=== PATIENT | female | born 1990 | race Two or more races ===

== ENCOUNTER 2017-09-18 17:00 | Inpatient (IN) | payer SELFPAY ==
[2017-09-18] MEDS ORDERED: Butorphanol 1 MG/ML SDV IVPUSH PRN (17:20)
[2017-09-18] MEDS ORDERED: Water For Irrigation,Sterile 1,000 ML Container IRR PRN (17:20)
[2017-09-18] MEDS ORDERED: Lidocaine 1% 50 ML MDV INJECT PRN (17:20)
[2017-09-18] MEDS ORDERED: Sodium Chloride 0.9% 2.5 ML Syringe FLUSH PRN (17:20)
[2017-09-18] MEDS ORDERED: Carboprost Tromethamine 250 MCG/1 ML Amp IM PRN (17:20)
[2017-09-18] MEDS ORDERED: Sodium Chloride 0.9% 10 ML Syringe FLUSH PRN (17:20)
[2017-09-18] MEDS ORDERED: Nalbuphine 10 MG/1 ML Vial IVPUSH PRN (17:20)
[2017-09-18] MEDS ORDERED: Methylergonovine 0.2 MG/1 ML Amp IM PRN (17:20)
[2017-09-18] MEDS ORDERED: Tranexamic Acid 1,000 MG in Sodium Chloride 0.9% 100 ML IV PRN (17:20)
[2017-09-18] MEDS ORDERED: Misoprostol 200 MCG Tab PO PRN (17:20)
[2017-09-18] MEDS ORDERED: Terbutaline 1 MG/ML SDV SUBCUT PRN (17:23)
[2017-09-18] MEDS ORDERED: Oxytocin/0.9 % Sodium Chloride 30 UNIT/500 ML BAG IV SCH (17:30)
[2017-09-18] MEDS ORDERED: Misoprostol 25 MCG (1/4 of 100 MCG) Tab VAG SCH (17:30)
[2017-09-18] MEDS: Misoprostol 25 MCG (1/4 of 100 MCG) Tab VAG PRN (23:11)
[2017-09-19] MEDS: Misoprostol 25 MCG (1/4 of 100 MCG) Tab VAG PRN ×2 (04:39→08:55)
[2017-09-19] MEDS: Lactated Ringers 1,000 ML IV SCH ×4 (11:29→21:43)
[2017-09-19] MEDS ORDERED: fentaNYL 100 MCG/2 ML SDV ONE (19:45)
--- NOTE | 2017-09-19 20:43 | PCM.PREANE ---
Preanesthetic Assessment - Anesthesia/Transfusion/Family Hx Anesthesia History: No Prior Anesthesia Family History of Anesthesia Reaction: No Transfusion History: No Prior Transfusion(s) - Review of Systems General: No Symptoms Pulmonary: No Symptoms Cardiovascular: No Symptoms Gastrointestinal: No Symptoms Neurological: No Symptoms Other: Reports: None (Denies any personal or family hx of bleeding or clotting problems) - Physical Assessment Height: 1.62 m Weight: 86.183 kg ASA Class: 2 Mental Status: Alert & Oriented x3 Airway Class: Mallampati = 2 Dentition: Reports: Normal Dentition - Lab Values: Laboratory Last Values WBC 8.82 K/uL (4.0-11.0) 09/18/17 17:45 RBC 4.12 M/uL (4.30-5.90) L 09/18/17 17:45 Hgb 12.4 g/dL (12.0-16.0) 09/18/17 17:45 Hct 36.3 % (36.0-46.0) 09/18/17 17:45 MCV 88.1 fL (80.0-98.0) 09/18/17 17:45 MCH 30.1 pg (27.0-32.0) 09/18/17 17:45 MCHC 34.2 g/dL (31.0-37.0) 09/18/17 17:45 RDW Std Deviation 46.0 fl (28.0-62.0) 09/18/17 17:45 RDW Coeff of Cathleen 14 % (11.0-15.0) 09/18/17 17:45 Plt Count 196 K/uL (150-400) 09/18/17 17:45 MPV 11.90 fL (7.40-12.00) 09/18/17 17:45 Nucleated RBC % 0.0 /100WBC 09/18/17 17:45 Nucleated RBCs # 0 K/uL 09/18/17 17:45 POC Glucose 82 mg/dL (60-110) 09/19/17 17:51 Blood Type O POSITIVE 09/18/17 17:45 Antibody Screen NEGATIVE 09/18/17 17:45 - Allergies Allergies/Adverse Reactions: Allergies Allergy/AdvReac Type Severity Reaction Status Date / Time pollen extracts Allergy Other Verified 09/18/17 17:19 - Acknowledgements Anesthesia Type Planned: Epidural Pt an Appropriate Candidate for the Planned Anesthesia: Yes Alternatives and Risks of Anesthesia Discussed w Pt/Guardian: Yes Pt/Guardian Understands and Agrees with Anesthesia Plan: Yes PreAnesthesia Questionnaire HEENT History: Reports: None Cardiovascular History: Reports: None Respiratory History: Reports: None Gastrointestinal History: Reports: None Genitourinary History: Reports: None 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: Musculoskeletal History: Reports: None Neurological History: Reports: None Psychiatric History: Reports: None Endocrine/Metabolic History: Reports: Diabetes, Gestational Hematologic History: Reports: None Immunologic History: Reports: None Oncologic (Cancer) History: Reports: None Dermatologic History: Reports: None - Infectious Disease History Infectious Disease History: Reports: Chicken Pox - Past Surgical History Female Surgical History: Reports: None - SUBSTANCE USE Smoking Status *Q: Never Smoker Second Hand Smoke Exposure: No Recreational Drug Use History: No - CURRENT (IN HOUSE) MEDS Current Meds: Current Medications Butorphanol Tartrate (Stadol) 1 mg IVPUSH Q1H PRN PRN Reason: Pain Last Admin: 09/19/17 18:04 Dose: 1 mg Carboprost Tromethamine (Hemabate Ds) 250 mcg IM ASDIRECTED PRN PRN Reason: Post Hemorrhage Lactated Ringer's (Ringers, Lactated) 1,000 mls @ 150 mls/hr IV ASDIRECTED SEBASTIÁN Last Admin: 09/19/17 20:29 Dose: 999 mls/hr Tranexamic Acid 1,000 mg/ (Sodium Chloride) 110 mls @ 660 mls/hr IV ONETIME PRN PRN Reason: Bleeding Oxytocin/Sodium Chloride (Oxytocin 30 Unit/500 Ml-Ns) 30 unit in 500 mls @ 2 mls/hr IV TITRATE SEBASTIÁN; Protocol Last Titration: 09/19/17 14:20 Dose: 8 munits/min, 8 mls/hr Lidocaine HCl (Xylocaine 1%) 50 ml INJECT .ONCE PRN PRN Reason: Laceration repair Methylergonovine Maleate (Methergine) 0.2 mg IM ASDIRECTED PRN PRN Reason: Post Hemorrhage Misoprostol (Cytotec) 200 mcg PO .ONCE PRN PRN Reason: Post Hemorrhage Misoprostol (Cytotec) 25 mcg VAG .ONCE SEBASTIÁN Last Admin: 09/18/17 18:18 Dose: 25 mcg Misoprostol (Cytotec) 25 mcg VAG Q4H PRN PRN Reason: Cervical Ripening Last Admin: 09/19/17 08:55 Dose: 25 mcg Sodium Chloride (Saline Flush) 10 ml FLUSH ASDIRECTED PRN PRN Reason: Keep Vein Open Sodium Chloride (Saline Flush) 2.5 ml FLUSH ASDIRECTED PRN PRN Reason: Keep Vein Open Sterile Water (Sterile Water For Irrigation) 1,000 ml IRR ASDIRECTED PRN PRN Reason: delivery Terbutaline Sulfate (Brethine) 0.25 mg SUBCUT ASDIRECTED PRN PRN Reason: Tacysystole Discontinued Medications Fentanyl (Sublimaze) Confirm Administered Dose 100 mcg .ROUTE .STK-MED ONE Stop: 09/19/17 19:46 Fentanyl/Bupivacaine HCl (Pigyjowl-Oyeah-Tb 2 Mcg/Ml-0.125%) Confirm Administered Dose 100 mls @ as directed EP .STK-MED ONE Stop: 09/19/17 19:46
--- NOTE | 2017-09-20 01:08 | PCM.DEL ---
L & D Note - General Info Date of Service: 09/20/17 - Delivery Note Labor: Induced by Oxytocin Cervical Ripening Method: Misoprostil Delivery Outcome: Livebirth Delivery Method: Spontaneous Vaginal Delivery-Single Presentation: Right Occiput Anterior (EHSAN) Nuchal Cord: Reduced Prep: Other Anesthesia Type: Epidural Episiotomy Type: None Laceration: 2nd Degree Suture type: Vicryl Suture size: 3-0 Placenta: Intact, Spontaneous Cord: 3 Vessels Resuscitation Needed: No : Bulb Syringe Score 1 min: 9 Score 5 min: 9 Second Stage Interventions: Reports: Pushing Effectively (liveborn Male) - General Info Date of Service: 09/20/17 - Patient Data Weight - Most Recent: 86.183 kg Lab Results Last 24 Hours: Laboratory Results - last 24 hr 09/19/17 09/19/17 09/19/17 Range/Units 05:16 11:16 17:51 POC Glucose 72 110 82 (60-110) mg/dL Med Orders - Current: Current Medications Butorphanol Tartrate (Stadol) 1 mg IVPUSH Q1H PRN PRN Reason: Pain Last Admin: 09/19/17 18:04 Dose: 1 mg Carboprost Tromethamine (Hemabate Ds) 250 mcg IM ASDIRECTED PRN PRN Reason: Post Hemorrhage Lactated Ringer's (Ringers, Lactated) 1,000 mls @ 150 mls/hr IV ASDIRECTED SEBASTIÁN Last Admin: 09/19/17 21:43 Dose: 150 mls/hr Tranexamic Acid 1,000 mg/ (Sodium Chloride) 110 mls @ 660 mls/hr IV ONETIME PRN PRN Reason: Bleeding Oxytocin/Sodium Chloride (Oxytocin 30 Unit/500 Ml-Ns) 30 unit in 500 mls @ 2 mls/hr IV TITRATE SEBASTIÁN; Protocol Last Titration: 09/19/17 21:41 Dose: 12 munits/min, 12 mls/hr Lidocaine HCl (Xylocaine 1%) 50 ml INJECT .ONCE PRN PRN Reason: Laceration repair Methylergonovine Maleate (Methergine) 0.2 mg IM ASDIRECTED PRN PRN Reason: Post Hemorrhage Misoprostol (Cytotec) 200 mcg PO .ONCE PRN PRN Reason: Post Hemorrhage Misoprostol (Cytotec) 25 mcg VAG .ONCE SEBASTIÁN Last Admin: 09/18/17 18:18 Dose: 25 mcg Misoprostol (Cytotec) 25 mcg VAG Q4H PRN PRN Reason: Cervical Ripening Last Admin: 09/19/17 08:55 Dose: 25 mcg Sodium Chloride (Saline Flush) 10 ml FLUSH ASDIRECTED PRN PRN Reason: Keep Vein Open Sodium Chloride (Saline Flush) 2.5 ml FLUSH ASDIRECTED PRN PRN Reason: Keep Vein Open Sterile Water (Sterile Water For Irrigation) 1,000 ml IRR ASDIRECTED PRN PRN Reason: delivery Terbutaline Sulfate (Brethine) 0.25 mg SUBCUT ASDIRECTED PRN PRN Reason: Tacysystole Discontinued Medications Fentanyl (Sublimaze) Confirm Administered Dose 100 mcg .ROUTE .STK-MED ONE Stop: 09/19/17 19:46 Fentanyl/Bupivacaine HCl (Ombjghul-Sqmcd-Zv 2 Mcg/Ml-0.125%) Confirm Administered Dose 100 mls @ as directed EP .STK-MED ONE Stop: 09/19/17 19:46 - Problem List & Annotations (1) Gestational diabetes SNOMED Code(s): 47859882 Code(s): O24.419 - GESTATIONAL DIABETES MELLITUS IN , UNSP CONTROL Status: Acute Current Visit: Yes (2) Vaginal delivery SNOMED Code(s): 787436708 Code(s): O80 - ENCOUNTER FOR FULL-TERM UNCOMPLICATED DELIVERY Status: Acute Current Visit: Yes - Problem List Review Problem List Initiated/Reviewed/Updated: Yes
[2017-09-20] MEDS ORDERED: Bisacodyl 10 MG Supp RECTAL PRN (01:10)
[2017-09-20] MEDS ORDERED: Acetaminophen 500 MG Tab PO PRN ×2 (01:10)
[2017-09-20] MEDS ORDERED: Docusate Sodium 100 MG Cap PO PRN (01:10)
[2017-09-20] MEDS ORDERED: Benzocaine/Menthol 20%-0.5% Spray 78 GM Cannister TOP PRN (01:10)
[2017-09-20] MEDS ORDERED: Ibuprofen 800 MG Tab PO PRN (01:10)
[2017-09-20] MEDS ORDERED: Lanolin 100% Cream 7 GM Tube TOP PRN (01:10)
[2017-09-20] MEDS ORDERED: Witch Hazel Medicated Pads 40/Jar TOP PRN (01:10)
[2017-09-20] MEDS ORDERED: Ibuprofen 400 MG Tab PO PRN (01:10)
[2017-09-20] MEDS ORDERED: Methylergonovine 0.2 MG/1 ML Amp IM PRN (01:10)
[2017-09-20] MEDS ORDERED: oxyCODONE 5 MG Tab PO PRN (01:10)
--- NOTE | 2017-09-20 01:46 | OR ---
SURGEON: Judy Pierson M.D. DATE OF PROCEDURE: 09/20/2017 PREOPERATIVE DIAGNOSES: 1. 39 and 4/7 weeks' intrauterine . 2. Gestational diabetes mellitus type A2. POSTOPERATIVE DIAGNOSES: 1. 39 and 4/7 weeks' intrauterine . 2. Gestational diabetes mellitus type A2. PROCEDURE: Cytotec and Pitocin induction of labor, term spontaneous vaginal delivery, with repair of second-degree laceration. ANESTHESIA: Epidural. ESTIMATED BLOOD LOSS: Less than 300 mL. FINDINGS: Live-born male, scores 9 and 9, weight is pending at the time of dictation. Placenta was spontaneous, Schultze intact with 3 vessels. Second- degree perineal laceration, repaired. BRIEF HISTORY: This is a 27-year-old female. She is G1, P0. She presents at 39 and 2/7 weeks' gestation for induction of labor. She received four doses of Cytotec. At this time, she was 2 to 3 cm dilated. She was initiated on Pitocin. Artificial rupture of membranes was performed. Clear fluid was noted. She had category 1 with episodes of category 2 heart tones throughout labor. She was group B strep negative. She progressed to complete. DESCRIPTION OF PROCEDURE: With the patient in dorsal lithotomy position, the patient pushed over an approximately 30-minute time period to a 5+ station, at which time, the head was delivered spontaneously and atraumatically over the perineum with support with subsequent delivery of the 's shoulders and body without any difficulty. The was bulb suctioned by nose and mouth, and the cord was clamped x2 and cut after it had ceased to pulsate. The infant was a liveborn male, scores 9 and 9, weight is pending at the time of dictation. Cord blood was collected for cord ABGs as well as routine cord blood sampling. Pitocin was initiated after delivery of the to assist with delivery of the placenta which was delivered spontaneously. Schultze intact with 3 vessels. Upon inspection of the pelvis and perineum, there were no periurethral, vaginal sidewall, cervical, or rectal lacerations. There was a midline second-degree perineal laceration, which was repaired using a running locked suture of 3-0 Vicryl for the vaginal mucosa, deep running suture of the same for the perineum, and a subcuticular suture of the same for the skin. Final sponge, needle, and instrument count were correct. There were no known complications. Mother and baby remained in LDRP in good condition. KAYLA VAIL /[id number]
--- NOTE | 2017-09-20 08:05 | PCM48HPAN ---
Post Anesthesia Note - EVALUATION WITHIN 48HRS OF ANESTHETIC Vital Signs in Normal Range: Yes Patient Participated in Evaluation: Yes Respiratory Function Stable: Yes Airway Patent: Yes Cardiovascular Function Stable: Yes Hydration Status Stable: Yes Pain Control Satisfactory: Yes Nausea and Vomiting Control Satisfactory: Yes Mental Status Recovered: Yes
[2017-09-21 06:58] LABS: CHLORIDE,CL 104 mmol/L (98-107); SODIUM,NA 139 mmol/L (136-145)
--- NOTE | 2017-09-21 08:43 | PCM.PNPP ---
- General Info Date of Service: 09/21/17 Functional Status: Reports: Pain Controlled, Tolerating Diet, Ambulating, Urinating - Review of Systems General: Denies: Fever, Malaise, Chills HEENT: Denies: Headaches Pulmonary: Denies: Shortness of Breath, Pleuritic Chest Pain, Cough Cardiovascular: Denies: Chest Pain, Palpitations, Dyspnea on Exertion Gastrointestinal: Denies: Abdominal Pain Genitourinary: Denies: Dysuria, Urgency, Incontinence Psychiatric: Denies: Confusion, Depression, Mood Lability, Anxiety - General Info Date of Service: 09/21/17 - Patient Data Vital Signs - Most Recent: Last Vital Signs Temp 37.0 C 09/21/17 07:53 Pulse 88 09/21/17 07:53 Resp 14 09/21/17 07:53 BP 94/57 L 09/21/17 07:53 Pulse Ox 97 09/21/17 07:53 Weight - Most Recent: 190 lb Lab Results - Last 24 Hours: Laboratory Results - last 24 hr 09/20/17 09/21/17 09/21/17 Range/Units 01:06 06:12 06:12 Hgb 11.8 L (12.0-16.0) g/dL Hct 34.9 L (36.0-46.0) % Sodium 139 (136-145) mmol/L Potassium 4.2 (3.5-5.1) mmol/L Chloride 104 (98-107) mmol/L Carbon Dioxide 27.4 (21.0-32.0) mmol/L BUN 12 (7.0-18.0) mg/dL Creatinine 0.8 (0.6-1.0) mg/dL Est Cr Clr Drug Dosing 89.46 mL/min Estimated GFR (MDRD) > 60.0 ml/min Glucose 107 H (74-106) mg/dL POC Glucose 117 H (60-110) mg/dL Calcium 8.9 (8.5-10.1) mg/dL Med Orders - Current: Current Medications Acetaminophen (Tylenol Extra Strength) 500 mg PO Q4H PRN PRN Reason: Pain Acetaminophen (Tylenol Extra Strength) 1,000 mg PO Q4H PRN PRN Reason: Pain Benzocaine/Menthol (Dermoplast Pain Relief 20%-0.5% Industry) 78 gm TOP ASDIRECTED PRN PRN Reason: Perineal Comfort Measure Last Admin: 09/20/17 01:55 Dose: 1 canister Bisacodyl (Dulcolax) 10 mg RECTAL .ONCE PRN PRN Reason: Constipation Docusate Sodium (Colace) 100 mg PO BID PRN PRN Reason: Constipation Last Admin: 09/20/17 22:56 Dose: 100 mg Emollient Ointment (Lansinoh Hpa) 0 gm TOP ASDIRECTED PRN PRN Reason: Sore Nipples Last Admin: 09/20/17 01:55 Dose: 1 tube Ibuprofen (Motrin) 400 mg PO Q4H PRN PRN Reason: Pain Ibuprofen (Motrin) 800 mg PO Q6H PRN PRN Reason: Pain Last Admin: 09/20/17 22:56 Dose: 800 mg Methylergonovine Maleate (Methergine) 0.2 mg IM .ONCE PRN PRN Reason: Excessive Vaginal Bleeding Oxycodone HCl (Oxycodone) 5 mg PO Q2H PRN PRN Reason: Pain Last Admin: 09/21/17 01:19 Dose: 5 mg Witch Santa (Tucks) 1 pad TOP ASDIRECTED PRN PRN Reason: comfort care Last Admin: 09/20/17 01:56 Dose: 1 tub Discontinued Medications Butorphanol Tartrate (Stadol) 1 mg IVPUSH Q1H PRN PRN Reason: Pain Last Admin: 09/19/17 18:04 Dose: 1 mg Carboprost Tromethamine (Hemabate Ds) 250 mcg IM ASDIRECTED PRN PRN Reason: Post Hemorrhage Fentanyl (Sublimaze) Confirm Administered Dose 100 mcg .ROUTE .STK-MED ONE Stop: 09/19/17 19:46 Lactated Ringer's (Ringers, Lactated) 1,000 mls @ 150 mls/hr IV ASDIRECTED SEBASTIÁN Last Admin: 09/19/17 21:43 Dose: 150 mls/hr Tranexamic Acid 1,000 mg/ (Sodium Chloride) 110 mls @ 660 mls/hr IV ONETIME PRN PRN Reason: Bleeding Oxytocin/Sodium Chloride (Oxytocin 30 Unit/500 Ml-Ns) 30 unit in 500 mls @ 2 mls/hr IV TITRATE SEBASTIÁN; Protocol Last Titration: 09/19/17 21:41 Dose: 12 munits/min, 12 mls/hr Fentanyl/Bupivacaine HCl (Ydozhauq-Wjifs-Sc 2 Mcg/Ml-0.125%) Confirm Administered Dose 100 mls @ as directed [facility] Stop: 09/19/17 19:46 Lidocaine HCl (Xylocaine 1%) 50 ml INJECT .ONCE PRN PRN Reason: Laceration repair Methylergonovine Maleate (Methergine) 0.2 mg IM ASDIRECTED PRN PRN Reason: Post Hemorrhage Misoprostol (Cytotec) 200 mcg PO .ONCE PRN PRN Reason: Post Hemorrhage Misoprostol (Cytotec) 25 mcg VAG .ONCE SEBASTIÁN Last Admin: 09/18/17 18:18 Dose: 25 mcg Misoprostol (Cytotec) 25 mcg VAG Q4H PRN PRN Reason: Cervical Ripening Last Admin: 09/19/17 08:55 Dose: 25 mcg Sodium Chloride (Saline Flush) 10 ml FLUSH ASDIRECTED PRN PRN Reason: Keep Vein Open Sodium Chloride (Saline Flush) 2.5 ml FLUSH ASDIRECTED PRN PRN Reason: Keep Vein Open Sterile Water (Sterile Water For Irrigation) 1,000 ml IRR ASDIRECTED PRN PRN Reason: delivery Last Admin: 09/20/17 00:14 Dose: 1,000 ml Terbutaline Sulfate (Brethine) 0.25 mg SUBCUT ASDIRECTED PRN PRN Reason: Tacysystole - Infant Interaction Disposition, : Simpson in Room with Family Feeding: Breastfed ; Nursed Well Support Person: - Recovery Exam Fundal Tone: Firm Fundal Level: 1 Fingerbreadths Below Umbilicus Fundal Placement: Midline Lochia Amount: Scant Lochia Color: Rubra/Red Perineum Description: Other (see below) Other Perinuem Description: 2nd deg lac Episiotomy/Laceration: Approximated Bladder Status: Voiding Urinary Elimination: Voided - Exam General: Alert, Oriented Lungs: Clear to Auscultation, Normal Respiratory Effort Cardiovascular: Regular Rate, Regular Rhythm GI/Abdominal Exam: Normal Bowel Sounds, Non-Tender Extremities: Non-Tender, Pedal Edema Skin: Warm Psy/Mental Status: Alert, Normal Affect, Normal Mood - Problem List & Annotations (1) Vaginal delivery SNOMED Code(s): 076611248 Code(s): O80 - ENCOUNTER FOR FULL-TERM UNCOMPLICATED DELIVERY Status: Acute Current Visit: Yes (2) Gestational diabetes SNOMED Code(s): 16881881 Code(s): O24.419 - GESTATIONAL DIABETES MELLITUS IN , UNSP CONTROL Status: Acute Current Visit: Yes Qualifiers: Gestational diabetes mellitus control: oral hypoglycemic-controlled - Problem List Review Problem List Initiated/Reviewed/Updated: Yes - Assessment Assessment:: PPD#1 s/p , stable and afebrile. Clinically stable for discharge today - Plan Plan:: Discharge instructions reviewed Bleeding and infection precautions reviewed Nothing in the vagina for 6 weeks Continue PNV whilst breast feeding May use OTC pain meds PRN S/S of blues vs depression were reviewed and precautions discussed For 2 hr GTT at her visit Follow up in 6 weeks in [facility]
== END 2017-09-21 11:30 | disposition home or self-care (01) | DRG 775 ==
LOC: MW.OBCHECK 17:00 → MW.OB 17:02 → MW.OBCHECK 17:20 → OBSVTOIN 09-20 00:36 → MW.OB 09-20 04:45
PROVIDERS: ADMIT Obstetrics & Gynecology; ATTEND Obstetrics & Gynecology
PROC: 10E0XZZ Delivery of Products of Conception, External Approach (ICD-10-PCS; principal; 2017-09-20)
PROC: 0KQM0ZZ Repair Perineum Muscle, Open Approach (ICD-10-PCS; 2017-09-20)
PROC: 3E0P7VZ Introduction of Hormone into Female Reproductive, Via Natural or Artificial Opening (ICD-10-PCS; 2017-09-20)
PROC: 3E033VJ Introduction of Other Hormone into Peripheral Vein, Percutaneous Approach (ICD-10-PCS; 2017-09-20)
PROC: 10907ZC Drainage of Amniotic Fluid, Therapeutic from Products of Conception, Via Natural or Artificial Opening (ICD-10-PCS; 2017-09-20)
DX: O24.425 Gestational diabetes mellitus in childbirth, controlled by oral hypoglycemic drugs (principal); O70.1 Second degree perineal laceration during delivery; Z3A.39 39 weeks gestation of pregnancy; Z37.0 Single live birth
CPT/HCPCS: 36415; 51702; 59025; 59409; 80048; 82803; 82962; 85014; 85018; 85027; 86850; 86900; 86901; A9270-GY; J0595; J2590; J3010; J7120

== ENCOUNTER 2019-10-28 06:04 | Inpatient (IN) | payer SELFPAY ==
[2019-10-28] MEDS ORDERED: Lidocaine 1% 50 ML MDV INJECT PRN (10:59)
[2019-10-28] MEDS ORDERED: Methylergonovine 0.2 MG/1 ML Amp IM PRN ×2 (10:59→18:50)
[2019-10-28] MEDS ORDERED: Sodium Chloride 0.9% 10 ML SDV IV PRN (10:59)
[2019-10-28] MEDS ORDERED: Carboprost Tromethamine 250 MCG/1 ML Amp IM PRN (10:59)
[2019-10-28] MEDS ORDERED: Tranexamic Acid 1,000 MG in Sodium Chloride 0.9% 100 ML IV PRN ×2 (10:59→18:50)
[2019-10-28] MEDS ORDERED: Sodium Chloride 0.9% 10 ML Syringe FLUSH PRN (10:59)
[2019-10-28] MEDS ORDERED: Misoprostol 200 MCG Tab PO PRN (10:59)
[2019-10-28] MEDS ORDERED: Sodium Chloride 0.9% 2.5 ML Syringe FLUSH PRN (10:59)
[2019-10-28] MEDS ORDERED: Ondansetron 4 MG/2 ML SDV IVPUSH PRN (10:59)
[2019-10-28] MEDS ORDERED: Water For Irrigation,Sterile 1,000 ML Container IRR PRN (10:59)
[2019-10-28] MEDS ORDERED: Nalbuphine 10 MG/1 ML Vial IVPUSH PRN (10:59)
[2019-10-28] MEDS ORDERED: Butorphanol 1 MG/ML SDV IVPUSH PRN (10:59)
[2019-10-28] MEDS ORDERED: Oxytocin/0.9 % Sodium Chloride 30 UNIT/500 ML BAG IV SCH ×2 (11:00→17:00)
[2019-10-28] MEDS ORDERED: Lactated Ringers 1,000 ML IV SCH (11:00)
[2019-10-28] MEDS ORDERED: Ropivacaine HCl/PF 100 ML ONE (11:40)
[2019-10-28] MEDS ORDERED: fentaNYL 100 MCG/2 ML SDV ONE (11:40)
--- NOTE | 2019-10-28 12:28 | PCM.PREANE ---
Preanesthetic Assessment - Anesthesia/Transfusion/Family Hx Anesthesia History: Prior Anesthesia Without Reaction Family History of Anesthesia Reaction: No Transfusion History: No Prior Transfusion(s) - Physical Assessment NPO Status Date: 10/28/19 NPO Status Time: 00:05 Height: 1.6 m Weight: 90.718 kg ASA Class: 1 - Lab Values: Laboratory Last Values COVID-19 (HELIO) NEGATIVE (NEGATIVE) 10/28/19 06:19 - Allergies Allergies/Adverse Reactions: Allergies Allergy/AdvReac Type Severity Reaction Status Date / Time pollen extracts Allergy Other Verified 10/28/19 06:34 - Acknowledgements Anesthesia Type Planned: Epidural Pt an Appropriate Candidate for the Planned Anesthesia: Yes Alternatives and Risks of Anesthesia Discussed w Pt/Guardian: Yes Pt/Guardian Understands and Agrees with Anesthesia Plan: Yes PreAnesthesia Questionnaire HEENT History: Reports: None Cardiovascular History: Reports: None Respiratory History: Reports: None Gastrointestinal History: Reports: None Genitourinary History: Reports: None 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: Musculoskeletal History: Reports: None Neurological History: Reports: None Psychiatric History: Reports: None Endocrine/Metabolic History: Reports: Diabetes, Gestational Hematologic History: Reports: None Immunologic History: Reports: None Oncologic (Cancer) History: Reports: None Dermatologic History: Reports: None - Infectious Disease History Infectious Disease History: Reports: Chicken Pox - Past Surgical History Female Surgical History: Reports: None - HOME MEDS Home Medications: Home Meds Pnv No.95/Ferrous Fum/Folic AC [ Vitamin Tablet] 1 tab PO DAILY 10/28/19 [History] valACYclovir [Valtrex] 10/28/19 [History] - CURRENT (IN HOUSE) MEDS Current Meds: Current Medications Butorphanol Tartrate (Stadol) 1 mg IVPUSH Q1H PRN PRN Reason: Pain Carboprost Tromethamine (Hemabate Ds) 250 mcg IM ASDIRECTED PRN PRN Reason: Post Hemorrhage Lactated Ringer's (Ringers, Lactated) 1,000 mls @ 150 mls/hr IV ASDIRECTED SEBASTIÁN Oxytocin/Sodium Chloride (Oxytocin 30 Unit/500 Ml-Ns) 30 unit in 500 mls @ 999 mls/hr IV TITRATE SEBASTIÁN Tranexamic Acid 1,000 mg/ (Sodium Chloride) 110 mls @ 660 mls/hr IV ONETIME PRN PRN Reason: Bleeding Lidocaine HCl (Xylocaine 1%) 50 ml INJECT ONETIME PRN PRN Reason: Laceration repair Methylergonovine Maleate (Methergine) 0.2 mg IM ASDIRECTED PRN PRN Reason: Post Hemorrhage Misoprostol (Cytotec) 200 mcg PO ONETIME PRN PRN Reason: Post Hemorrhage Nalbuphine HCl (Nubain) 10 mg IVPUSH Q1H PRN PRN Reason: Pain (severe 7-10) Ondansetron HCl (Zofran) 4 mg IVPUSH Q6H PRN PRN Reason: Nausea/Vomiting Sodium Chloride (Saline Flush) 10 ml FLUSH ASDIRECTED PRN PRN Reason: Keep Vein Open Sodium Chloride (Saline Flush) 2.5 ml FLUSH ASDIRECTED PRN PRN Reason: Keep Vein Open Sodium Chloride (Normal Saline) 10 ml IV ASDIRECTED PRN PRN Reason: IV Use Sterile Water (Sterile Water For Irrigation) 1,000 ml IRR ASDIRECTED PRN PRN Reason: delivery Discontinued Medications Fentanyl (Sublimaze) Confirm Administered Dose 100 mcg .ROUTE .STK-MED ONE Stop: 10/28/19 11:41 Ropivacaine (Naropin 0.2%) Confirm Administered Dose 100 mls @ as directed .ROUTE .STK-MED ONE Stop: 10/28/19 11:41
--- NOTE | 2019-10-28 12:34 | PCM.PRNOTE ---
- Free Text/Narrative Note: Anes Note Pt requested labor epidural for L & D Risks and methods discussed. She wishes to proceed Level L2-L3 midline approach. Steril technique Chloroprop scrub to lubar area Steril fenistrated drape applied epidural space easily achieved. single attempt using FLORENCIA Technique FLORENCIA at 4cm. Cath threaded 5cm with ease Cath secured at skinat 10cm using sterile clear adhesive test dose 1215 2cc 1.5% lido with epi neg load 1218 10cc 0.2% Ropivacain with 1mcg/cc fentanyl added Pump 1225 90cc same solution Rate is 8cc/hr with 6cc q 20 min bolus WILLA well Time with patient [id number] Robin Marti CRNA
[2019-10-28] MEDS ORDERED: Terbutaline 1 MG/ML SDV SUBCUT PRN (16:55)
--- NOTE | 2019-10-28 18:39 | PCM.DEL ---
L & D Note - General Info Date of Service: 10/28/19 - Delivery Note Labor: Spontaneous Cervical Ripening Method: Oxytocin Delivery Outcome: Livebirth Delivery Method: Spontaneous Vaginal Delivery-Single Infant Delivery Mode: Spontaneous Presentation: Right Occiput Anterior (EHSAN) Nuchal Cord: Present, Reduced Anesthesia Type: Epidural Amniotic Fluid Description: Meconium Stained Episiotomy Type: None Laceration: 2nd Degree Suture type: Vicryl Suture size: 3-0 Placenta: Intact, Spontaneous, Meconium Stained Cord: 3 Vessels Estimated Blood Loss: 300 Resuscitation Needed: No Simon: Suctioned, Bulb Syringe, Stimulated, Warmed, Delaplane Used, Warmer Used Score 1 min: 7 Score 5 min: 9 Delivery Comments (Free Text/Narrative):: Liveborn female weighing 3450, apgars 7 and 9 - General Info Date of Service: 10/28/19 - Patient Data Weight - Most Recent: 200 lb Lab Results Last 24 Hours: Laboratory Results - last 24 hr 10/28/19 10/28/19 10/28/19 Range/Units 06:19 11:24 11:24 WBC 12.68 H (4.0-11.0) K/uL RBC 3.61 L (4.30-5.90) M/uL Hgb 10.6 L (12.0-16.0) g/dL Hct 32.8 L (36.0-46.0) % MCV 90.9 (80.0-98.0) fL MCH 29.4 (27.0-32.0) pg MCHC 32.3 (31.0-37.0) g/dL RDW Std Deviation 48.7 (28.0-62.0) fl RDW Coeff of Cathleen 15 (11.0-15.0) % Plt Count 190 (150-400) K/uL MPV 12.40 H (7.40-12.00) fL Nucleated RBC % 0.0 /100WBC Nucleated RBCs # 0 K/uL COVID-19 (HELIO) NEGATIVE (NEGATIVE) Blood Type O POSITIVE Antibody Screen NEGATIVE Med Orders - Current: Current Medications Butorphanol Tartrate (Stadol) 1 mg IVPUSH Q1H PRN PRN Reason: Pain Carboprost Tromethamine (Hemabate Ds) 250 mcg IM ASDIRECTED PRN PRN Reason: Post Hemorrhage Lactated Ringer's (Ringers, Lactated) 1,000 mls @ 150 mls/hr IV ASDIRECTED SEBASTIÁN Last Admin: 10/28/19 11:25 Dose: 150 mls/hr Documented by: Oxytocin/Sodium Chloride (Oxytocin 30 Unit/500 Ml-Ns) 30 unit in 500 mls @ 999 mls/hr IV TITRATE SEBASTIÁN Last Infusion: 10/28/19 18:25 Dose: 500 mls/hr Documented by: Tranexamic Acid 1,000 mg/ (Sodium Chloride) 110 mls @ 660 mls/hr IV ONETIME PRN PRN Reason: Bleeding Oxytocin/Sodium Chloride (Oxytocin 30 Unit/500 Ml-Ns) 30 unit in 500 mls @ 2 mls/hr IV TITRATE SEBASTIÁN; Protocol Last Titration: 10/28/19 18:11 Dose: 0 munits/min, 0 mls/hr Documented by: Lidocaine HCl (Xylocaine 1%) 50 ml INJECT ONETIME PRN PRN Reason: Laceration repair Methylergonovine Maleate (Methergine) 0.2 mg IM ASDIRECTED PRN PRN Reason: Post Hemorrhage Misoprostol (Cytotec) 200 mcg PO ONETIME PRN PRN Reason: Post Hemorrhage Nalbuphine HCl (Nubain) 10 mg IVPUSH Q1H PRN PRN Reason: Pain (severe 7-10) Ondansetron HCl (Zofran) 4 mg IVPUSH Q6H PRN PRN Reason: Nausea/Vomiting Sodium Chloride (Saline Flush) 10 ml FLUSH ASDIRECTED PRN PRN Reason: Keep Vein Open Sodium Chloride (Saline Flush) 2.5 ml FLUSH ASDIRECTED PRN PRN Reason: Keep Vein Open Sodium Chloride (Normal Saline) 10 ml IV ASDIRECTED PRN PRN Reason: IV Use Sterile Water (Sterile Water For Irrigation) 1,000 ml IRR ASDIRECTED PRN PRN Reason: delivery Terbutaline Sulfate (Brethine) 0.25 mg SUBCUT ASDIRECTED PRN PRN Reason: Tacysystole Discontinued Medications Fentanyl (Sublimaze) Confirm Administered Dose 100 mcg .ROUTE .STK-MED ONE Stop: 10/28/19 11:41 Ropivacaine (Naropin 0.2%) Confirm Administered Dose 100 mls @ as directed .ROUTE .STK-MED ONE Stop: 10/28/19 11:41 - Problem List & Annotations (1) Vaginal delivery SNOMED Code(s): 777797072 Code(s): O80 - ENCOUNTER FOR FULL-TERM UNCOMPLICATED DELIVERY Status: Acute Current Visit: No - Problem List Review Problem List Initiated/Reviewed/Updated: Yes - Assessment Assessment:: 29yo s/p . Meconium-stained fluid. - Plan Plan:: Admit to post- for routine care Monitor lochia encourage
[2019-10-28] MEDS ORDERED: Benzocaine/Menthol 20%-0.5% Spray 78 GM Cannister TOP PRN (18:50)
[2019-10-28] MEDS ORDERED: Ibuprofen 400 MG Tab PO PRN (18:50)
[2019-10-28] MEDS ORDERED: Docusate Sodium 100 MG Cap PO PRN (18:50)
[2019-10-28] MEDS ORDERED: Acetaminophen 500 MG Tab PO PRN ×2 (18:50)
[2019-10-28] MEDS ORDERED: Lanolin 100% Cream 7 GM Tube TOP PRN (18:50)
[2019-10-28] MEDS ORDERED: Witch Hazel Medicated Pads 40/Jar TOP PRN (18:50)
[2019-10-28] MEDS ORDERED: Bisacodyl 10 MG Supp RECTAL PRN (18:50)
[2019-10-29] MEDS: Ibuprofen 800 MG Tab PO PRN ×2 (01:59→12:36)
--- NOTE | 2019-10-29 07:18 | PCM48HPAN ---
Post Anesthesia Note - EVALUATION WITHIN 48HRS OF ANESTHETIC Vital Signs in Normal Range: Yes Patient Participated in Evaluation: Yes Respiratory Function Stable: Yes Airway Patent: Yes Cardiovascular Function Stable: Yes Hydration Status Stable: Yes Pain Control Satisfactory: Yes Nausea and Vomiting Control Satisfactory: Yes Mental Status Recovered: Yes Vital Signs: Last Vital Signs Temp 36.6 C 10/29/19 04:00 Pulse 85 10/29/19 04:00 Resp 17 10/29/19 04:00 BP 114/74 10/29/19 04:00 Pulse Ox 97 10/29/19 04:00
--- NOTE | 2019-10-29 07:22 | PCM.PNPP ---
<Dani Luna - Last Filed: 10/29/19 07:19> - General Info Date of Service: 10/29/19 Subjective Update: Pt feeling well today. Pain well-controlled with ibuprofen and tylenol. Had one episode of heavy bleeding but that has since subsided. Is ambulating, voiding, and tolerating oral intake without difficulty. not going well right now so is supplementing with formula. - Review of Systems General: Reports: No Symptoms HEENT: Reports: No Symptoms Pulmonary: Reports: No Symptoms Cardiovascular: Reports: No Symptoms Gastrointestinal: Reports: No Symptoms Genitourinary: Reports: No Symptoms Musculoskeletal: Reports: No Symptoms Skin: Reports: No Symptoms Neurological: Reports: No Symptoms Psychiatric: Reports: No Symptoms - General Info Date of Service: 10/29/19 - Patient Data Vital Signs - Most Recent: Last Vital Signs Temp 97.9 F 10/29/19 04:00 Pulse 85 10/29/19 04:00 Resp 17 10/29/19 04:00 BP 114/74 10/29/19 04:00 Pulse Ox 97 10/29/19 04:00 Weight - Most Recent: 90.718 kg I&O - Last 24 Hours: Intake & Output 10/28/19 10/29/19 10/29/19 22:59 06:59 14:59 Output Total 800 Balance -800 Lab Results - Last 24 Hours: Laboratory Results - last 24 hr 10/28/19 10/28/19 10/28/19 Range/Units 11:24 11:24 18:10 WBC 12.68 H (4.0-11.0) K/uL RBC 3.61 L (4.30-5.90) M/uL Hgb 10.6 L (12.0-16.0) g/dL Hct 32.8 L (36.0-46.0) % MCV 90.9 (80.0-98.0) fL MCH 29.4 (27.0-32.0) pg MCHC 32.3 (31.0-37.0) g/dL RDW Std Deviation 48.7 (28.0-62.0) fl RDW Coeff of Cathleen 15 (11.0-15.0) % Plt Count 190 (150-400) K/uL MPV 12.40 H (7.40-12.00) fL Nucleated RBC % 0.0 /100WBC Nucleated RBCs # 0 K/uL Cord ABG pH 7.294 (7.18-7.38) Cord ABG Base Excess -7 (-10--2) Cord VBG pH 7.338 (7.25-7.45) Cord VBG Base Excess -5 (-10--2) Blood Type O POSITIVE Antibody Screen NEGATIVE 10/29/19 Range/Units 05:37 WBC (4.0-11.0) K/uL RBC (4.30-5.90) M/uL Hgb 10.2 L (12.0-16.0) g/dL Hct 31.1 L (36.0-46.0) % MCV (80.0-98.0) fL MCH (27.0-32.0) pg MCHC (31.0-37.0) g/dL RDW Std Deviation (28.0-62.0) fl RDW Coeff of Cathleen (11.0-15.0) % Plt Count (150-400) K/uL MPV (7.40-12.00) fL Nucleated RBC % /100WBC Nucleated RBCs # K/uL Cord ABG pH (7.18-7.38) Cord ABG Base Excess (-10--2) Cord VBG pH (7.25-7.45) Cord VBG Base Excess (-10--2) Blood Type Antibody Screen Med Orders - Current: Current Medications Acetaminophen (Tylenol Extra Strength) 500 mg PO Q4H PRN PRN Reason: Pain Acetaminophen (Tylenol Extra Strength) 1,000 mg PO Q4H PRN PRN Reason: Pain Benzocaine/Menthol (Dermoplast Pain Relief 20%-0.5% [place]) 78 gm TOP ASDIRECTED PRN PRN Reason: Perineal Comfort Measure Bisacodyl (Dulcolax) 10 mg RECTAL ONETIME PRN PRN Reason: Constipation Docusate Sodium (Colace) 100 mg PO BID PRN PRN Reason: Constipation Emollient Ointment (Lansinoh Hpa) 0 gm TOP ASDIRECTED PRN PRN Reason: Sore Nipples Tranexamic Acid 1,000 mg/ (Sodium Chloride) 110 mls @ 660 mls/hr IV ONETIME PRN PRN Reason: Bleeding Ibuprofen (Motrin) 400 mg PO Q4H PRN PRN Reason: Pain Ibuprofen (Motrin) 800 mg PO Q6H PRN PRN Reason: Pain Last Admin: 10/29/19 01:59 Dose: 800 mg Documented by: Methylergonovine Maleate (Methergine) 0.2 mg IM ONETIME PRN PRN Reason: Excessive Vaginal Bleeding [place] (Tucks) 1 pad TOP ASDIRECTED PRN PRN Reason: comfort care Discontinued Medications Butorphanol Tartrate (Stadol) 1 mg IVPUSH Q1H PRN PRN Reason: Pain Carboprost Tromethamine (Hemabate Ds) 250 mcg IM ASDIRECTED PRN PRN Reason: Post Hemorrhage Fentanyl (Sublimaze) Confirm Administered Dose 100 mcg .ROUTE .STK-MED ONE Stop: 10/28/19 11:41 Last Admin: 10/29/19 02:00 Dose: Not Given Documented by: Lactated Ringer's (Ringers, Lactated) 1,000 mls @ 150 mls/hr IV ASDIRECTED SEBASTIÁN Last Admin: 10/28/19 11:25 Dose: 150 mls/hr Documented by: Oxytocin/Sodium Chloride (Oxytocin 30 Unit/500 Ml-Ns) 30 unit in 500 mls @ 999 mls/hr IV TITRATE [facility] Last Infusion: 10/28/19 18:25 Dose: 500 mls/hr Documented by: Tranexamic Acid 1,000 mg/ (Sodium Chloride) 110 mls @ 660 mls/hr IV ONETIME PRN PRN Reason: Bleeding Ropivacaine (Naropin 0.2%) Confirm Administered Dose 100 mls @ as directed .ROUTE .[facility]-MED ONE Stop: 10/28/19 11:41 Oxytocin/Sodium Chloride (Oxytocin 30 Unit/500 Ml-Ns) 30 unit in 500 mls @ 2 mls/hr IV TITRATE [facility]; Protocol Last Titration: 10/28/19 18:11 Dose: 0 munits/min, 0 mls/hr Documented by: Lidocaine HCl (Xylocaine 1%) 50 ml INJECT ONETIME PRN PRN Reason: Laceration repair Methylergonovine Maleate (Methergine) 0.2 mg IM ASDIRECTED PRN PRN Reason: Post Hemorrhage Misoprostol (Cytotec) 200 mcg PO ONETIME PRN PRN Reason: Post Hemorrhage Nalbuphine HCl (Nubain) 10 mg IVPUSH Q1H PRN PRN Reason: Pain (severe 7-10) Ondansetron HCl (Zofran) 4 mg IVPUSH Q6H PRN PRN Reason: Nausea/Vomiting Sodium Chloride (Saline Flush) 10 ml FLUSH ASDIRECTED PRN PRN Reason: Keep Vein Open Sodium Chloride (Saline Flush) 2.5 ml FLUSH ASDIRECTED PRN PRN Reason: Keep Vein Open Sodium Chloride (Normal Saline) 10 ml IV ASDIRECTED PRN PRN Reason: IV Use Sterile Water (Sterile Water For Irrigation) 1,000 ml IRR ASDIRECTED PRN PRN Reason: delivery Terbutaline Sulfate (Brethine) 0.25 mg SUBCUT ASDIRECTED PRN PRN Reason: Tacysystole - Interaction Support Person: - Recovery Exam Fundal Tone: Firm Fundal Level: 1 Fingerbreadths Below Umbilicus Fundal Placement: Midline Lochia Amount: Small Lochia Color: Rubra/Red Episiotomy/Laceration: Approximated - Exam General: Alert, Oriented, No Acute Distress HEENT: Pupils Equal, EOMI Neck: Supple, No JVD Lungs: Clear to Auscultation, Normal Respiratory Effort. No: Crackles, Rales, Rhonchi, Stridor, Wheezing Cardiovascular: Regular Rate, Regular Rhythm, No Murmurs GI/Abdominal Exam: Normal Bowel Sounds, Soft, Non-Tender Extremities: Normal Inspection, Normal Range of Motion, Non-Tender, Pedal Edema Skin: Warm, Dry, Intact Neurological: No New Focal Deficit, Normal Speech, Normal Tone Psy/Mental Status: Alert, Normal Affect, Normal Mood - Problem List & Annotations (1) Vaginal delivery SNOMED Code(s): 117571028 Code(s): O80 - ENCOUNTER FOR FULL-TERM UNCOMPLICATED DELIVERY Status: Acute Current Visit: No - Problem List Review Problem List Initiated/Reviewed/Updated: Yes - Assessment Assessment:: 29yo s/p . Meconium-stained fluid. PPD#1 - Plan Plan:: routine care Monitor lochia encourage Discharge today <Arpita Matson - Last Filed: 10/29/19 09:51> - Patient Data Vital Signs - Most Recent: Last Vital Signs Temp 36.2 C 10/29/19 08:05 Pulse 87 10/29/19 08:05 Resp 16 10/29/19 08:05 BP 100/58 L 10/29/19 08:05 Pulse Ox 97 10/29/19 08:05 I&O - Last 24 Hours: Intake & Output 10/28/19 10/29/19 10/29/19 22:59 06:59 14:59 Output Total 800 Balance -800 Lab Results - Last 24 Hours: Laboratory Results - last 24 hr 10/28/19 10/28/19 10/28/19 Range/Units 11:24 11:24 18:10 WBC 12.68 H (4.0-11.0) K/uL RBC 3.61 L (4.30-5.90) M/uL Hgb 10.6 L (12.0-16.0) g/dL Hct 32.8 L (36.0-46.0) % MCV 90.9 (80.0-98.0) fL MCH 29.4 (27.0-32.0) pg MCHC 32.3 (31.0-37.0) g/dL RDW Std Deviation 48.7 (28.0-62.0) fl RDW Coeff of Cathleen 15 (11.0-15.0) % Plt Count 190 (150-400) K/uL MPV 12.40 H (7.40-12.00) fL Nucleated RBC % 0.0 /100WBC Nucleated RBCs # 0 K/uL Cord ABG pH 7.294 (7.18-7.38) Cord ABG Base Excess -7 (-10--2) Cord VBG pH 7.338 (7.25-7.45) Cord VBG Base Excess -5 (-10--2) Blood Type O POSITIVE Antibody Screen NEGATIVE 10/29/19 Range/Units 05:37 WBC (4.0-11.0) K/uL RBC (4.30-5.90) M/uL Hgb 10.2 L (12.0-16.0) g/dL Hct 31.1 L (36.0-46.0) % MCV (80.0-98.0) fL MCH (27.0-32.0) pg MCHC (31.0-37.0) g/dL RDW Std Deviation (28.0-62.0) fl RDW Coeff of Cathleen (11.0-15.0) % Plt Count (150-400) K/uL MPV (7.40-12.00) fL Nucleated RBC % /100WBC Nucleated RBCs # K/uL Cord ABG pH (7.18-7.38) Cord ABG Base Excess (-10--2) Cord VBG pH (7.25-7.45) Cord VBG Base Excess (-10--2) Blood Type Antibody Screen Med Orders - Current: Current Medications Acetaminophen (Tylenol Extra Strength) 500 mg PO Q4H PRN PRN Reason: Pain Acetaminophen (Tylenol Extra Strength) 1,000 mg PO Q4H PRN PRN Reason: Pain Benzocaine/Menthol (Dermoplast Pain Relief 20%-0.5% [place]) 78 gm TOP ASDIRECTED PRN PRN Reason: Perineal Comfort Measure Bisacodyl (Dulcolax) 10 mg RECTAL ONETIME PRN PRN Reason: Constipation Docusate Sodium (Colace) 100 mg PO BID PRN PRN Reason: Constipation Emollient Ointment (Lansinoh Hpa) 0 gm TOP ASDIRECTED PRN PRN Reason: Sore Nipples Tranexamic Acid 1,000 mg/ (Sodium Chloride) 110 mls @ 660 mls/hr IV ONETIME PRN PRN Reason: Bleeding Ibuprofen (Motrin) 400 mg PO Q4H PRN PRN Reason: Pain Ibuprofen (Motrin) 800 mg PO Q6H PRN PRN Reason: Pain Last Admin: 10/29/19 01:59 Dose: 800 mg Documented by: Methylergonovine Maleate (Methergine) 0.2 mg IM ONETIME PRN PRN Reason: Excessive Vaginal Bleeding [place] (Tucks) 1 pad TOP ASDIRECTED PRN PRN Reason: comfort care Discontinued Medications Butorphanol Tartrate (Stadol) 1 mg IVPUSH Q1H PRN PRN Reason: Pain Carboprost Tromethamine (Hemabate Ds) 250 mcg IM ASDIRECTED PRN PRN Reason: Post Hemorrhage Fentanyl (Sublimaze) Confirm Administered Dose 100 mcg .ROUTE .STK-MED ONE Stop: 10/28/19 11:41 Last Admin: 10/29/19 02:00 Dose: Not Given Documented by: Lactated Ringer's (Ringers, Lactated) 1,000 mls @ 150 mls/hr IV ASDIRECTED SEBASTIÁN Last Admin: 10/28/19 11:25 Dose: 150 mls/hr Documented by: Oxytocin/Sodium Chloride (Oxytocin 30 Unit/500 Ml-Ns) 30 unit in 500 mls @ 999 mls/hr IV TITRATE [place]STIÁN Last Infusion: 10/28/19 18:25 Dose: 500 mls/hr Documented by: Tranexamic Acid 1,000 mg/ (Sodium Chloride) 110 mls @ 660 mls/hr IV ONETIME PRN PRN Reason: Bleeding Ropivacaine (Naropin 0.2%) Confirm Administered Dose 100 mls @ as directed .ROUTE .[facility]-MED ONE Stop: 10/28/19 11:41 Oxytocin/Sodium Chloride (Oxytocin 30 Unit/500 Ml-Ns) 30 unit in 500 mls @ 2 mls/hr IV TITRATE [place]BASTIÁN; Protocol Last Titration: 10/28/19 18:11 Dose: 0 munits/min, 0 mls/hr Documented by: Lidocaine HCl (Xylocaine 1%) 50 ml INJECT ONETIME PRN PRN Reason: Laceration repair Methylergonovine Maleate (Methergine) 0.2 mg IM ASDIRECTED PRN PRN Reason: Post Hemorrhage Misoprostol (Cytotec) 200 mcg PO ONETIME PRN PRN Reason: Post Hemorrhage Nalbuphine HCl (Nubain) 10 mg IVPUSH Q1H PRN PRN Reason: Pain (severe 7-10) Ondansetron HCl (Zofran) 4 mg IVPUSH Q6H PRN PRN Reason: Nausea/Vomiting Sodium Chloride (Saline Flush) 10 ml FLUSH ASDIRECTED PRN PRN Reason: Keep Vein Open Sodium Chloride (Saline Flush) 2.5 ml FLUSH ASDIRECTED PRN PRN Reason: Keep Vein Open Sodium Chloride (Normal Saline) 10 ml IV ASDIRECTED PRN PRN Reason: IV Use Sterile Water (Sterile Water For Irrigation) 1,000 ml IRR ASDIRECTED PRN PRN Reason: delivery Terbutaline Sulfate (Brethine) 0.25 mg SUBCUT ASDIRECTED PRN PRN Reason: Tacysystole - My Orders Last 24 Hours: My Active Orders 07/23/20 09:49 Ready for Discharge [RC] PER UNIT ROUTINE - Plan Plan:: patient seen and examined, agree with MSIV. VS and labs are reassuring. Patient would like to go home later today. Discharge instructions reviewed. Follow up at [facility] 6 week. Discharge to home today.
--- NOTE | 2019-10-29 15:14 | OR ---
SURGEON: Judy Pierson M.D. DATE OF PROCEDURE: 10/28/2019 PREOPERATIVE DIAGNOSIS: A 39 and 5/7 weeks' intrauterine , active spontaneous labor. POSTOPERATIVE DIAGNOSIS: A 39 and 5/7 weeks' intrauterine , active spontaneous labor. PROCEDURE: Term spontaneous vaginal delivery, repair of second-degree laceration. PRIMARY SURGEON: Judy Pierson M.D. MANAGER BUSINESS INTELLIGENCE: Dani Luna MS4 ANESTHESIA: Epidural. ESTIMATED BLOOD LOSS: Less than 200 mL. FINDINGS: Liveborn female. score of 7 and 9, weighing 7 pounds 10 ounces. Placenta spontaneous, Schultze intact with 3 vessels, second-degree perineal laceration repaired. COMPLICATIONS: None known. DISPOSITION: Mother and baby in LDR in good condition. BRIEF HISTORY: This is a 29-year-old female, G2, P1. She presents at 39 and 5/7 weeks' gestation in active spontaneous labor, group B strep negative. She does have a known history of herpes. No active lesions. Bright light exam was performed and was negative. She was admitted to Labor and Delivery, and progressed to 5 cm. She received an epidural for pain control. She had artificial rupture of membranes. Meconium-stained fluid was noted. She progressed to complete. DESCRIPTION OF PROCEDURE: With the patient in dorsal lithotomy position, the patient pushed over a 30- minute time period to a 5+ station, at which time the head was delivered spontaneously and atraumatically over the perineum with support with subsequent delivery of the infant's shoulders utilizing Beatriz maneuver and a slight rotation of the anterior shoulder. The was delivered without difficulty and was bulb suctioned by nose and mouth. The cord was clamped x2 and cut, and the infant was handed to the nurse in attendance at delivery. The infant was a liveborn female, score of 7 and 9, weight 7 pounds 10 ounces. Cord blood was collected for cord ABGs as well as routine cord blood sampling. Pitocin was initiated after delivery of the infant to assist with delivery of the placenta which was delivered spontaneously. Schultze intact with 3 vessels. Upon inspection of pelvis and perineum, there were no periurethral, vaginal sidewall, cervical, or rectal laceration. There was a small second-degree perineal laceration that was repaired using a running locked suture of 3-0 Vicryl for the vaginal mucosa, deep running suture for the perineum, and a subcuticular suture also using 3-0 Vicryl for the skin. Final sponge, needle, and instrument counts were correct. There were no known complications. Mother and baby are in LDR in good condition. KAYLA VAIL /[id number]
== END 2019-10-29 21:25 | disposition home or self-care (01) | DRG 807 ==
LOC: MW.OBCHECK 06:04 → MW.OB 06:05 → MW.OBCHECK 06:36 → MW.OB 06:36 → OBSVTOIN 18:10 → MW.OB 22:08
PROVIDERS: ADMIT Obstetrics & Gynecology; ATTEND Obstetrics & Gynecology
PROC: 10E0XZZ Delivery of Products of Conception, External Approach (ICD-10-PCS; principal; 2019-10-28)
PROC: 0KQM0ZZ Repair Perineum Muscle, Open Approach (ICD-10-PCS; 2019-10-28)
PROC: 10907ZC Drainage of Amniotic Fluid, Therapeutic from Products of Conception, Via Natural or Artificial Opening (ICD-10-PCS; 2019-10-28)
PROC: 3E0P7VZ Introduction of Hormone into Female Reproductive, Via Natural or Artificial Opening (ICD-10-PCS; 2019-10-28)
PROC: 3E0R3BZ Introduction of Anesthetic Agent into Spinal Canal, Percutaneous Approach (ICD-10-PCS; 2019-10-28)
PROC: 00HU33Z Insertion of Infusion Device into Spinal Canal, Percutaneous Approach (ICD-10-PCS; 2019-10-28)
DX: O69.81X0 Labor and delivery complicated by cord around neck, without compression, not applicable or unspecified (principal); Z37.0 Single live birth; O77.0 Labor and delivery complicated by meconium in amniotic fluid; O70.1 Second degree perineal laceration during delivery; Z3A.39 39 weeks gestation of pregnancy; Z11.59 Encounter for screening for other viral diseases
CPT/HCPCS: 01967; 36415; 51702; 59025; 59409; 82803; 85014; 85018; 85027; 86592; 86850; 86900; 86901; A9270-GY; J2590; J2795; J3010; J7120; U0002